=== PATIENT | male | born 1955 | race Caucasian/White ===

== ENCOUNTER → 2019-01-12 | Outpatient (REF) | LOC: M LAB LCGH 15:10 | PROVIDERS: ATTEND Surgery | DX: K63.5 Polyp of colon (principal); K62.1 Rectal polyp; K62.0 Anal polyp ==

== ENCOUNTER 2023-06-18 10:47 | Day surgery (SDC) | payer MEDICARE ==
[~2023-06-18] VITALS: Ht 170.2 cm; Wt 104.3 kg
[~2023-06-18 10:47] MED LIST: CIDA500T2 PO; FOSI20TA79 PO; HYDR-3490 PO; MELO15TA28 PO; MULT-90 PO
[2023-06-18] MEDS ORDERED: fentaNYL 100 MCG/2 ML INJECTION As Ordered ONE (11:52)
[2023-06-18] MEDS ORDERED: MIDAZOLAM INJ 2MG/2ML VIAL As Ordered ONE (11:52)
[2023-06-18] MEDS ORDERED: LIDOCAINE 2% 100MG/5ML SDV (FOR ANES.) As Ordered ONE (11:53)
[2023-06-18] MEDS ORDERED: ONDANSETRON 4MG 2ML VIAL As Ordered ONE (11:53)
[2023-06-18] MEDS ORDERED: propofoL 200 MG/20 ML VIAL As Ordered ONE (11:53)
[2023-06-18] MEDS: LR 1,000 ML IV SCH (12:05)
[2023-06-18] MEDS: ceFAZolin SOD 2 GM in IV 1 EA IV ONE (12:30)
[2023-06-18] MEDS ORDERED: ACETAMINOPHEN 1000MG 100ML IV BAG As Ordered ONE (12:43)
[2023-06-18] MEDS: GENTAMICIN SULF 80MG/2ML VIAL As Ordered ONE (12:46)
[2023-06-18] MEDS: LIDOCAINE 2% MDV 20ML VIAL As Ordered ONE (12:47)
[2023-06-18] MEDS ORDERED: KETOROLAC 60MG 2ML VIAL As Ordered ONE (13:12)
[2023-06-18 14:15] VITALS: BP 187/84; TEMP 96.7; O2SAT 96
== END 2023-06-18 14:33 | disposition home or self-care (01) ==
LOC: M SDC 10:47
PROVIDERS: ATTEND Podiatrist
DX: M1A.9XX1 Chronic gout, unspecified, with tophus (tophi) (principal); M20.5X2 Other deformities of toe(s) (acquired), left foot; I10 Essential (primary) hypertension; G47.30 Sleep apnea, unspecified; Z79.899 Other long term (current) drug therapy; Z79.1 Long term (current) use of non-steroidal anti-inflammatories (NSAID); Z88.5 Allergy status to narcotic agent
CPT/HCPCS: 28160; 73630; 88305; 88311; J0131; J0665; J0690; J1100; J1580; J1885; J2250; J2405; J3010

== ENCOUNTER → 2024-12-29 | Outpatient (REF) | payer MEDICARE | LOC: M SMT 12:46 | PROVIDERS: ATTEND Urology | DX: R97.20 Elevated prostate specific antigen [PSA] (principal) ==